=== PATIENT | male | born 1945 | race African-American/Black ===

== ENCOUNTER 2017-12-24 23:23 | Emergency (ER) | payer OTHER ==
[2017-12-24 23:37] LABS: POC GLUCOSE 573 mg/dL (70-99)
[2017-12-25 00:10] LABS: ADD MAN DIFF? NO
[2017-12-25 00:13] LABS: BASO # 0.1 x10^3/uL (0.0-0.2); BASO % 1 % (0-3); EOS % 0 % (0-3); HEMATOCRIT 34.5 % (39.0-53.0); HEMOGLOBIN 11.2 g/dL (13.0-17.5); LYMPH # 0.7 x10^3/uL (1.0-4.8); LYMPH % 11 % (24-48); MEAN CORPUSCULAR HEMOGLOBIN 29 pg (25-35); MEAN CORPUSCULAR HGB CONC 32 g/dL (31-37); MEAN CORPUSCULAR VOLUME 91 fL (79-100); MONO # 0.4 x10^3/uL (0.0-1.1); MONO % 6 % (0-9); NEUT # 5.8 x10^3uL (1.8-7.7); NEUT % 82 % (31-73); PLATELET COUNT 302 x10^3/uL (140-400); RED CELL DISTRIBUTION WIDTH 19.8 % (11.5-14.5); WHITE BLOOD COUNT 7.1 x10^3/uL (4.0-11.0)
[2017-12-25 00:28] LABS: ANION GAP 14 (6-14); BLOOD UREA NITROGEN 55 mg/dL (8-26); CALCIUM 9.2 mg/dL (8.5-10.1); CARBON DIOXIDE 28 mmol/L (21-32); CHLORIDE 93 mmol/L (98-107); CREATININE 9.4 mg/dL (0.7-1.3); GFR 6.7; POTASSIUM 4.8 mmol/L (3.5-5.1); SODIUM 135 mmol/L (136-145)
[2017-12-25 00:33] LABS: GLUCOSE 626 mg/dL (70-99)
[2017-12-25] MEDS: INSULIN REGULAR 100 UNIT/ML 3ML VIAL. IV (01:01)
[2017-12-25 01:55] LABS: POC GLUCOSE 494 mg/dL (70-99)
[2017-12-25] MEDS: IBUPROFEN 600 MG TABLET. PO (01:58)
== END 2017-12-25 02:05 | disposition home or self-care (01) ==
LOC: ER 23:23
DX: E11.65 Type 2 diabetes mellitus with hyperglycemia (principal); I12.0 Hypertensive chronic kidney disease with stage 5 chronic kidney disease or end stage renal disease; E11.22 Type 2 diabetes mellitus with diabetic chronic kidney disease; N18.6 End stage renal disease; E78.00 Pure hypercholesterolemia, unspecified; Z79.4 Long term (current) use of insulin; Z86.73 Personal history of transient ischemic attack (TIA), and cerebral infarction without residual deficits
CPT/HCPCS: 36415; 80048; 82962; 85025; 93005; 96374; 99285-25; J1815